=== PATIENT | female | born 1990 | race Native Hawaiian/Other Pacific Islander ===

== ENCOUNTER 2018-04-27 03:34 | Inpatient (IN) | payer MEDICAID, OTHER ==
[2018-04-27 03:44] VITALS: O2SAT 97
--- NOTE | 2018-04-27 04:01 | ED PDOC ---
Psych Transfer Clearance - Clearance Statement Clearance Statement: Reviewed vital signs, lab results and transfer papers. Patient clinically stable for psychiatric admission.
[2018-04-27] MEDS ORDERED: DiphenhydrAMINE 50 mg/ml Inj IM PRN (05:02)
[2018-04-27] MEDS ORDERED: Magnesium Hydroxide Susp 30 ml UD PO PRN (05:02)
--- NOTE | 2018-04-27 05:36 | PCM.BM ---
<Rodney Horton P - Last Filed: 04/27/18 05:34> Treatment Plan Problems - Problems identified on initial assessmt Hopelessness/Helplessness Date Initiated: 04/27/18 Time Initiated: 05:34 Assessment reference: NA Status: Active Treatment assets and liabiliti Patient Assests: cooperative, educated, ADL independent, physically healthy, good support system, negotiates basic needs, cognitively intact - Milieu Protocol Maintain good personal hygiene: daily Encourage regular showers, daily Remind patient to perform daily oral care, daily Assist patient to perform ADL's Conduct patient checks and document Observation sheet: Q15 minutes Maintain personal safety: every shift Educate patient to report safety concerns to staff, every shift Monitor environment for contraband/sharps Medication safety: Monitor for expected outcome, potential side effects: every shift, Assess barriers to learning: every shift, Assess readiness for medication education: every shift <Kaleb Chun J - Last Filed: 05/01/18 07:08> Family Contact Family involvement: Family/SO is involved Family contact: Patient agrees to contact, Family has been contacted by patient , Telephone contact initiated by staff Family contact name: Zia - Family contacted how many times per week?: 2 Family contact comment: Field Service Specialist spoke with pt's , Zia [phone], to update him on pt's progress on the unit, the course of treatment at this time and what was discussed in treatment team. Field Service Specialist reported that pt appears brighter today, more visible on the unit, and was seen interacting with other patients. Field Service Specialist explained medications to pt's and how patient is currently experiencing increased anxiety that may be caused by Zoloft, an SSRI. Field Service Specialist spoke about discharge with Zia as he does not have concerns for pt's safety at this time and feels comfortable with her returning home. Field Service Specialist explained referral to [facility] for medication management. - Goals for Treatment Patient goals for treatment: Pt identified restless sleep as a problem and would like better management of medication to address this issue. Patient's family/SO goals for treatment: Pt's offered no goals at the time of call. Discharge/Continuing Care - Education Needs Education Needs: Family Medication, Family Diagnosis/Disease Process, Family Coping Skills, Family Aftercare Safety Plan, Patient Medication, Patient Diagnosis/Disease Process, Patient Coping Skills, Patient Aftercare Safety Plan - Discharge Discharge Criteria: Tolerates medication w/o severe side effects, Free of Suicidal thoughts, Normal sleep pattern, Ability to care for self, Reduction of target symptoms Discharge to:: Home, With Family - Treatment Team Participation Patient/Family/SO Statement: 04/30/18 11:00 Pt reported that she is feeling "good," but experienced restless sleep due to an "anxious energy" ever since beginning the Zoloft. Dr. Boswell discussed possible switch in anti-depressant. Pt reported her body is very sensitive to medication as she cannot even drink coffee due to the caffeine. Discussed with Family/SO: Yes Was Patient/Family/SO present at Treatment Team Meeting: Yes <Kathie Boswell - Last Filed: 05/02/18 13:05> - Diagnosis (1) Depression Status: Acute Interventions: psychotherapy, pharmacotherapy 05/02/18 13:04
[2018-04-27 08:49] LABS: T4 8.76 ug/dl (5.5-11.0)
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
[2018-04-27] MEDS: Alum-Mag Hydrox-Simethicone Susp (30 mL) PO PRN (21:54)
[2018-04-28] MEDS: Alum-Mag Hydrox-Simethicone Susp (30 mL) PO PRN (04:25)
--- NOTE | 2018-04-28 05:12 | CP.PCM.HP ---
History of Present Illness - History of Present Illness History of Present Illness: Attending: Dr Gaines Chief complaint: Overdose on Naprosyn The patient was seen adn examined in the Psychiatric Unit HPI: This is a 27 years old female who was transferred from the [facility] to the [facility] psychiatric Unit for management. She had a miscarriage in November of 2017 and since then she has been depressed. On this occasion she ingested Naprosyn and Alcohol in a Suicidal attempt and was taken to the [facility]. she is referring epigastric pains relieved miniminally with Maalox. No nausea , vomits, Diarrhea, urinary symptoms nor fever. PMH: no chronic diseases PSH: Denies SH; No illegal substance abuse; No alcohol, Live with the family, Works as a accredited legal secretary. FH: State: No known famuily hx Allergy: NKDA Medication: None Present on Admission - Present on Admission Any Indicators Present on Admission: No History of DVT/PE: No History of Uncontrolled Diabetes: No Urinary Catheter: No Decubitus Ulcer Present: No Review of Systems - Constitutional Constitutional: absent: Anorexia, Chills, Fatigue, Fever, Headache - EENT Eyes: Requires Corrective Lenses. absent: Blurred Vision, Floaters, Photophobia Ears: absent: Decreased Hearing, Ear Discharge, Tinnitus Nose/Mouth/Throat: absent: Epistaxis, Nasal Congestion, Sinus Pain, Sinus Pressure - Cardiovascular Cardiovascular: absent: Chest Pain, Dyspnea, Edema - Respiratory Respiratory: absent: Cough, Dyspnea, Wheezing, Stridor - Gastrointestinal Gastrointestinal: Abdominal Pain. absent: Constipation, Diarrhea, Nausea, Vomiting - Genitourinary Genitourinary: absent: Dysuria, Flank Pain, Urinary Frequency - Musculoskeletal Musculoskeletal: absent: Arthralgias, Back Pain, Muscle Weakness - Integumentary Integumentary: absent: Pruritus, Rash, Skin Ulcer, Sores, Striae, Swelling - Neurological Neurological: absent: Confusion, Dizziness, Weakness - Psychiatric Psychiatric: absent: Anxiety, Depression, Panic Attacks - Endocrine Endocrine: absent: Palpitations, Polydipsia, Polyphagia, Polyuria - Hematologic/Lymphatic Hematologic: absent: Easy Bleeding, Easy Bruising Past Patient History - Past Medical History & Family History Past Medical History?: No - Past Social History Smoking Status: Never Smoked Chewing Tobacco Use: No Cigar Use: No Alcohol: None Home Situation {Lives}: With Family - CARDIAC Hx Cardiac Disorders: No - PULMONARY Hx Respiratory Disorders: No - NEUROLOGICAL Hx Neurological Disorder: No - HEENT Hx HEENT Problems: No - RENAL Hx Chronic Kidney Disease: No - ENDOCRINE/METABOLIC Hx Endocrine Disorders: No - HEMATOLOGICAL/ONCOLOGICAL Hx Blood Disorders: No - INTEGUMENTARY Hx Dermatological Problems: No - MUSCULOSKELETAL/RHEUMATOLOGICAL Hx Herniated Disk: Yes - GASTROINTESTINAL Hx Gastrointestinal Disorders: No - GENITOURINARY/GYNECOLOGICAL Hx Genitourinary Disorders: Yes Other/Comment: miscarriage November 2017 - PSYCHIATRIC Hx Substance Use: No - SURGICAL HISTORY Hx Surgeries: No - ANESTHESIA Hx Anesthesia: No Meds Allergies/Adverse Reactions: Allergies Allergy/AdvReac Type Severity Reaction Status Date / Time No Known Allergies Allergy Verified 04/27/18 03:44 Physical Exam - Constitutional Appears: No Acute Distress - Head Exam Head Exam: ATRAUMATIC, NORMAL INSPECTION, NORMOCEPHALIC - Eye Exam Eye Exam: EOMI, Normal appearance Pupil Exam: NORMAL ACCOMODATION, PERRL - ENT Exam ENT Exam: Mucous Membranes Moist, Normal Exam, Normal External Ear Exam, Normal Oropharynx - Neck Exam Neck exam: Positive for: Full Rom, Normal Inspection. Negative for: Lymphadenopathy, Tenderness - Respiratory Exam Respiratory Exam: Clear to Auscultation Bilateral, Stridor. absent: Rales, Rhonchi, Wheezes - Cardiovascular Exam Cardiovascular Exam: REGULAR RHYTHM, RRR, +S1, +S2. absent: Gallop, JVD - GI/Abdominal Exam GI & Abdominal Exam: Normal Bowel Sounds, Soft Additional comments: Epigastric abdominal pains on palpation, no guarding, no rebound tenderness - Rectal Exam Rectal Exam: Deferred - Extremities Exam Extremities exam: Positive for: full ROM, normal inspection. Negative for: calf tenderness, pedal edema - Back Exam Back exam: NORMAL INSPECTION. absent: CVA tenderness (L), CVA tenderness (R) - Neurological Exam Neurological exam: Alert, CN II-XII Intact, Oriented x3, Reflexes Normal - Psychiatric Exam Psychiatric exam: Normal Affect, Normal Mood - Skin Skin Exam: Dry, Intact, Normal Color, Warm Results - Vital Signs Recent Vital Signs: Last Vital Signs Temp 97.7 F 04/27/18 16:24 Pulse 93 H 04/27/18 16:24 Resp 16 04/27/18 16:24 BP 115/76 04/27/18 16:24 Pulse Ox 97 04/27/18 03:42 - Labs Result Diagrams: 04/28/18 07:27 04/28/18 07:27 Labs: Laboratory Results - last 24 hr 04/27/18 04/27/18 07:30 07:30 Triglycerides 55 Cholesterol 121 LDL Cholesterol Direct 61 HDL Cholesterol 44 Thyroxine (T4) 8.76 TSH 3rd Generation 1.00 RPR Nonreactive Assessment & Plan - Assessment and Plan (Free Text) Assessment: #. Depression #. Suicide Attempt #. UTI Plan: 27 years old female who was transferred from the [facility] to the [facility] psychiatric Unit for management. She had a miscarriage in November of 2017 and since then she has been depressed. On this occasion she ingested Naprosyn and Alcohol in a Suicidal attempt and was taken to the [facility]. #. Depression with suicidal attempt - Psychiatric management #. Gastritis caused by the Naprosyn ingestion - Pantoprazole BID - follow CBC #. UTI - Macrobid - Date & Time Date: 04/28/18 Time: 05:12
[2018-04-28 07:38] LABS: BASO % 0.9 % (0.0-2.0); EOS # 0.1 K/uL (0.0-0.7); EOS % 1.8 % (0.0-4.0); HEMOGLOBIN 12.1 g/dL (12.0-16.0); LYMPH # 1.8 K/uL (1.0-4.3); MEAN CELL VOLUME 90.2 fl (81.0-99.0); MEAN CORPUSCULAR HEMOGLOBIN 30.6 pg (27.0-31.0); MEAN CORPUSCULAR HGB CONC 33.9 g/dL (33.0-37.0); MEAN PLATELET VOLUME 8.4 fl (7.2-11.7); MONO # 0.6 K/uL (0.0-0.8); MONO % 11.6 % (0.0-10.0); NEUT # 2.5 K/uL (1.8-7.0); NEUT % 49.7 % (50.0-75.0); NRBC % 0.1 % (0.0-0.0); RBC 3.96 Mil/uL (3.80-5.20); RED CELL DISTRIBUTION WIDTH 13.8 % (11.5-14.5)
[2018-04-28 07:44] LABS: ALBUMIN 3.9 g/dL (3.5-5.0); BLOOD UREA NITROGEN 11 mg/dl (7-17); CALCIUM 9.1 mg/dL (8.4-10.2); GFR AFRICAN-AMERICAN > 60; GFR NON-AFRICAN AMERICAN > 60
[2018-04-28 07:45] LABS: ALB/GLOB RATIO 1.3 (1.0-2.1); ALT/SGPT 18 U/L (9-52); AST/SGOT 15 U/L (14-36)
--- NOTE | 2018-04-28 09:18 | CP.PCM.CON ---
History of Present Illness - History of Present Illness History of Present Illness: Attending: Dr Gaines Reason for Consult: Medical management Chief complaint: Overdose on Naprosyn The patient was seen adn examined in the Psychiatric Unit HPI: This is a 27 years old female who was transferred from the [facility] to the [facility] psychiatric Unit for management. She had a miscarriage in November of 2017 and since then she has been depressed. On this occasion she ingested Naprosyn and Alcohol in a Suicidal attempt and was taken to the [facility]. she is referring epigastric pains relieved miniminally with Maalox. No nausea , vomits, Diarrhea, urinary symptoms nor fever. PMH: no chronic diseases PSH: Denies SH; No illegal substance abuse; No alcohol, Live with the family, Works as a secretary to the vice president. FH: State: No known famuily hx Allergy: NKDA Medication: None Review of Systems - Constitutional Constitutional: absent: Anorexia, Chills, Fatigue, Fever, Headache - EENT Eyes: Requires Corrective Lenses. absent: Diplopia, Discharge, Floaters, Photophobia Ears: absent: Decreased Hearing, Ear Discharge, Tinnitus Nose/Mouth/Throat: absent: Epistaxis, Nasal Congestion, Sinus Pain, Sinus Pressure - Cardiovascular Cardiovascular: absent: Chest Pain, Dyspnea, Dyspnea on Exertion - Respiratory Respiratory: absent: Cough, Dyspnea - Gastrointestinal Gastrointestinal: absent: Abdominal Pain, Belching, Diarrhea, Nausea, Vomiting - Genitourinary Genitourinary: absent: Dysuria, Flank Pain, Hematuria, Urinary Frequency - Musculoskeletal Musculoskeletal: absent: Abnormal Gait, Arthralgias, Muscle Weakness - Integumentary Integumentary: absent: Pruritus, Rash, Skin Ulcer, Sores, Striae, Swelling - Neurological Neurological: absent: Confusion, Dizziness, Focal Weakness, Headaches, Weakness - Psychiatric Psychiatric: Depression, Suicidal Ideation. absent: Anxiety, Panic Attacks - Endocrine Endocrine: absent: Palpitations, Polydipsia, Polyphagia, Polyuria - Hematologic/Lymphatic Hematologic: absent: Easy Bleeding, Easy Bruising Past Patient History - Past Medical History & Family History Past Medical History?: No - Past Social History Smoking Status: Never Smoked Chewing Tobacco Use: No Cigar Use: No Alcohol: None Home Situation {Lives}: With Family - CARDIAC Hx Cardiac Disorders: No - PULMONARY Hx Respiratory Disorders: No - NEUROLOGICAL Hx Neurological Disorder: No - HEENT Hx HEENT Problems: No - RENAL Hx Chronic Kidney Disease: No - ENDOCRINE/METABOLIC Hx Endocrine Disorders: No - HEMATOLOGICAL/ONCOLOGICAL Hx Blood Disorders: No - INTEGUMENTARY Hx Dermatological Problems: No - MUSCULOSKELETAL/RHEUMATOLOGICAL Hx Herniated Disk: Yes - GASTROINTESTINAL Hx Gastrointestinal Disorders: No - GENITOURINARY/GYNECOLOGICAL Hx Genitourinary Disorders: Yes Other/Comment: miscarriage November 2017 - PSYCHIATRIC Hx Substance Use: No - SURGICAL HISTORY Hx Surgeries: No - ANESTHESIA Hx Anesthesia: No Meds Allergies/Adverse Reactions: Allergies Allergy/AdvReac Type Severity Reaction Status Date / Time No Known Allergies Allergy Verified 04/27/18 03:44 - Medications Medications: Current Medications Acetaminophen (Tylenol 325mg Tab) 650 mg PO Q4 PRN PRN Reason: pain level 4-7 Al Hydrox/Mg Hydrox/Simethicone (Maalox Plus 30 Ml) 30 ml PO Q4 PRN PRN Reason: Dyspepsia Last Admin: 04/28/18 04:25 Dose: 30 ml Diphenhydramine HCl (Benadryl) 50 mg IM Q6 PRN PRN Reason: Extrapyramidal S/S Unable PO Diphenhydramine HCl (Benadryl) 50 mg PO Q6 PRN PRN Reason: Extrapyramidal Symptoms Diphenhydramine HCl (Benadryl) 50 mg PO HS PRN PRN Reason: Sleep Haloperidol (Haldol) 5 mg PO Q4 PRN PRN Reason: Agitation Haloperidol Lactate (Haldol) 5 mg IM Q4 PRN PRN Reason: Agitation, Unable to Take PO Lorazepam (Ativan) 1 mg IM Q8 PRN PRN Reason: Anxiety/Agitation,Unable PO Lorazepam (Ativan) 1 mg PO Q8 PRN PRN Reason: Anxiety/Agitation Magnesium Hydroxide (Milk Of Magnesia) 30 ml PO HS PRN PRN Reason: Constipation Nitrofurantoin Macrocrystals (Macrobid) 100 mg PO Q12 BRIAN PRN Reason: Protocol Last Admin: 04/27/18 22:55 Dose: 100 mg Pantoprazole Sodium (Protonix Ec Tab) 40 mg PO BID [facility] Stop: 05/01/18 09:01 Sertraline HCl (Zoloft) 25 mg PO DAILY [facility] Physical Exam - Constitutional Appears: No Acute Distress - Head Exam Head Exam: ATRAUMATIC, NORMAL INSPECTION, NORMOCEPHALIC - Eye Exam Eye Exam: EOMI, Normal appearance Pupil Exam: NORMAL ACCOMODATION, PERRL - ENT Exam ENT Exam: Mucous Membranes Moist, Normal Exam, Normal External Ear Exam - Neck Exam Neck exam: Positive for: Full Rom, Normal Inspection. Negative for: Lymphadenopathy, Tenderness - Respiratory Exam Respiratory Exam: Clear to Auscultation Bilateral. absent: Rales, Rhonchi, Wheezes - Cardiovascular Exam Cardiovascular Exam: REGULAR RHYTHM, RRR, +S1, +S2. absent: Gallop, JVD - GI/Abdominal Exam GI & Abdominal Exam: Normal Bowel Sounds, Soft Additional comments: Epigastric abdominal pains on palpation, no guarding, no rebound tenderness - Rectal Exam Rectal Exam: Deferred - Extremities Exam Extremities exam: Positive for: full ROM, normal inspection. Negative for: joint swelling, pedal edema - Back Exam Back exam: NORMAL INSPECTION. absent: CVA tenderness (L), CVA tenderness (R) - Neurological Exam Neurological exam: Alert, CN II-XII Intact, Oriented x3, Reflexes Normal - Psychiatric Exam Psychiatric exam: Normal Affect, Normal Mood - Skin Skin Exam: Dry, Intact, Normal Color, Warm Results - Vital Signs Recent Vital Signs: Last Vital Signs Temp 97.7 F 04/27/18 16:24 Pulse 93 H 04/27/18 16:24 Resp 16 04/27/18 16:24 BP 115/76 04/27/18 16:24 Pulse Ox 97 04/27/18 03:42 - Labs Result Diagrams: 04/28/18 07:27 04/28/18 07:27 Labs: Laboratory Results - last 24 hr 04/27/18 04/27/18 04/28/18 07:30 07:30 07:27 WBC 5.0 RBC 3.96 Hgb 12.1 Hct 35.8 MCV 90.2 MCH 30.6 MCHC 33.9 RDW 13.8 Plt Count 244 MPV 8.4 Neut % (Auto) 49.7 L Lymph % (Auto) 36.0 Kent % (Auto) 11.6 H Eos % (Auto) 1.8 Baso % (Auto) 0.9 Neut # (Auto) 2.5 Lymph # (Auto) 1.8 Kent # (Auto) 0.6 Eos # (Auto) 0.1 Baso # (Auto) 0.0 Sodium Potassium Chloride Carbon Dioxide Anion Gap BUN Creatinine Est GFR ( Amer) Est GFR (Non-Af Amer) Random Glucose Hemoglobin A1c 5.0 Calcium Total Bilirubin AST ALT Alkaline Phosphatase Total Protein Albumin Globulin Albumin/Globulin Ratio TSH 3rd Generation RPR Nonreactive 04/28/18 07:27 WBC RBC Hgb Hct MCV MCH MCHC RDW Plt Count MPV Neut % (Auto) Lymph % (Auto) Kent % (Auto) Eos % (Auto) Baso % (Auto) Neut # (Auto) Lymph # (Auto) Kent # (Auto) Eos # (Auto) Baso # (Auto) Sodium 140 Potassium 3.9 Chloride 105 Carbon Dioxide 25 Anion Gap 14 BUN 11 Creatinine 0.5 L Est GFR ( Amer) > 60 Est GFR (Non-Af Amer) > 60 Random Glucose 94 Hemoglobin A1c Calcium 9.1 Total Bilirubin 0.8 AST 15 ALT 18 Alkaline Phosphatase 40 Total Protein 6.9 Albumin 3.9 Globulin 3.0 Albumin/Globulin Ratio 1.3 TSH 3rd Generation 0.68 RPR Assessment & Plan - Assessment and Plan (Free Text) Plan: #. Depression #. Suicide Attempt #. UTI Plan: 27 years old female who was transferred from the [facility] to the [facility] psychiatric Unit for management. She had a miscarriage in November of 2017 and since then she has been depressed. On this occasion she ingested Naprosyn and Alcohol in a Suicidal attempt and was taken to the [facility]. #. Depression with suicidal attempt - Psychiatric management #. Gastritis caused by the Naprosyn ingestion - Pantoprazole BID - follow CBC #. UTI - Macrobid - Date & Time Date: 04/28/18 Time: :18
[2018-04-28] MEDS: Pantoprazole 40 mg EC Tab PO SCH ×2 (10:07→21:45)
--- NOTE | 2018-04-28 13:54 | PCM.PYCHPN ---
Psychiatric Progress Note - Psychiatric Progress Note Patient seen today, length of contact: pt seen and evaluated Patient Chief Complaint: pt has remained very depressed and withdrawn with constricted affect.pt c/o stomach ache and irritation and seen by dr fagan and appears to be due to effect of naprosyn which pt overdosed on it and prescribed protonix for same.pt remains with limited insight about her suicidal gesture and need further stabilization. Medication Change: No Medical Record Reviewed: Yes Mental Status Examination - Cognitive Function Orientation: Person, Situation Memory: Intact Attention: Poor Association: WNL Fund of Knowledge: WNL - Mood Mood: Depressed - Affect Affect: Constricted - Formal Thought Process Formal Thought Process: No Impairment - Suicidal Ideation Suicidal Ideation: No - Homicidal Ideation Homicidal Ideation: No Goal/Treatment Plan - Goal/Treatment Plan Progress Toward Problem(s) and Goals/Treatment Plan: Pt has agreed to start zoloft 25 mg daily for depression and will continue to titrate the meds to stabilize the mood and engage pt in therapy and groups.
--- NOTE | 2018-04-29 10:30 | PCM.PYCHPN ---
Psychiatric Progress Note - Psychiatric Progress Note Patient seen today, length of contact: pt seen and evaluated Patient Chief Complaint: pt has been less depressed but still withdrawn with constricted affect.pt c/o anxiety and stomach ache and irritation and seen by dr fagan and appears to be due to effect of naprosyn which pt overdosed on it and prescribed protonix for same.pt remains with limited insight about her suicidal gesture and need further stabilizatiion Medication Change: No Medical Record Reviewed: Yes Mental Status Examination - Cognitive Function Orientation: Person, Situation Memory: Intact Attention: Poor Association: WNL Fund of Knowledge: WNL - Mood Mood: Depressed - Affect Affect: Constricted - Formal Thought Process Formal Thought Process: No Impairment - Suicidal Ideation Suicidal Ideation: No - Homicidal Ideation Homicidal Ideation: No Goal/Treatment Plan - Goal/Treatment Plan Progress Toward Problem(s) and Goals/Treatment Plan: Pt has agreed to start zoloft 25 mg daily for depression and will continue to titrate the meds to stabilize the mood and engage pt in therapy and groups.
[2018-04-29] MEDS: Pantoprazole 40 mg EC Tab PO SCH ×2 (11:07→16:23)
[2018-04-30] MEDS: Pantoprazole 40 mg EC Tab PO SCH ×2 (08:47→18:00)
--- NOTE | 2018-04-30 17:03 | PCM.PYCHPN ---
Psychiatric Progress Note - Psychiatric Progress Note Patient seen today, length of contact: pt seen and evaluated Patient Chief Complaint: I feel anxious and I could not sleep Problems Identified/Issues Discussed: pt evaluated with treatment team, reported episodes of increased anxiety, also reported decreased sleep with intermediate insomnia, pt relating the increased anxiety to zoloft, discussed decreasing the dose, also discussed starting trazodone to help with insomnia pt showing insight into illness and agreed to start therapy on discharge , denied any current active suicidal ideation or intent DSM 5 Symptoms Update: major depression Medication Change: Yes (decrease zoloft) Medical Record Reviewed: Yes Mental Status Examination - Cognitive Function Orientation: Person, Situation Memory: Intact Attention: WNL Concentration: WNL Association: WNL Fund of Knowledge: WN Decription of patient's judgement and insights: partial insight , fair judgment - Mood Mood: Depressed - Affect Affect: Constricted - Formal Thought Process Formal Thought Process: No Impairment Psychotic Thoughts and Behaviors: pt denied perceptual disturbances, non elicited - Suicidal Ideation Suicidal Ideation: No - Homicidal Ideation Homicidal Ideation: No Goal/Treatment Plan - Goal/Treatment Plan Need for Continued Stay: Severe depression anxiety, Discharge may exacerbated symptoms Progress Toward Problem(s) and Goals/Treatment Plan: decrease zoloft to 12.5mg and increase gradually start trazodone 25mg qhs for insomnia group and supportive therapy
[2018-05-01] MEDS: Pantoprazole 40 mg EC Tab PO SCH (09:43)
--- NOTE | 2018-05-01 15:45 | PCM.PYCHPN ---
Psychiatric Progress Note - Psychiatric Progress Note Patient seen today, length of contact: pt seen and evaluated Patient Chief Complaint: I am less anxious today Problems Identified/Issues Discussed: pt evaluated, reported feeling less anxious with the decrease of dose of zoloft , reported improved sleep, less depressed, brighter affect, attending groups pt showing insight into illness and agreed to start therapy on discharge , denied any current active suicidal ideation or intent DSM 5 Symptoms Update: depression Medication Change: No Medical Record Reviewed: Yes Mental Status Examination - Cognitive Function Orientation: Person, Situation Memory: Intact Attention: WNL Concentration: WNL Association: WNL Fund of Knowledge: WN Decription of patient's judgement and insights: partial insight , fair judgment - Mood Mood: Depressed - Affect Affect: Constricted - Formal Thought Process Formal Thought Process: No Impairment Psychotic Thoughts and Behaviors: pt denied perceptual disturbances, non elicited - Suicidal Ideation Suicidal Ideation: No - Homicidal Ideation Homicidal Ideation: No Goal/Treatment Plan - Goal/Treatment Plan Need for Continued Stay: Severe depression anxiety, Discharge may exacerbated symptoms Progress Toward Problem(s) and Goals/Treatment Plan: zoloft to 12.5mg trazodone 25mg qhs for insomnia group and supportive therapy
[2018-05-02 08:40] VITALS: BP 112/72; PULSE 76; RESP 16; TEMP 98
--- NOTE | 2018-05-02 13:13 | PCM.PYCHDC ---
Mental Status Examination - Mental Status Examination Orientation: Person, Place, Situation, Time Memory: Intact Mood: Neutral Affect: Broad Speech: Appropriate Attention: WNL Concentration: WNL Association: WNL Fund of Knowledge: WNL Formal Thought Process: No Impairment Description of patient's judgement and insight: partial insight , fair judgment Psychotic Thoughts and Behaviors: pt denied perceptual disturbances, non elicited Suicidal Ideation: No Current Homicidal Ideation?: No Discharge Summary - Discharge Note Reason for Hospitalization: This is the ist 3NP admission for this 27 yr olmarc has[place] female with h/o depression stemming from a miscarriage in nov 2017 and has been increasingly depressed for the past month and having suicidal thoughts and admitted as transfer from [facility] as pt made suicidal attempt by overdose on naproxen with wine .pt has recently moved to [place] last year and 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 pt has lost motivation to go out and socialize . Consultations:: List each consultation separately and include: 1. Reason for request. 2. Findings. 3. Follow-up Summary of Hospital Course include:: 1. Description of specific treatment plan utilized for patients during their course of treatmen. 2. Summarize the time- course for resolution of acute symptoms and/or regressed behaviors. 3. Describe issues identified and worked on during hospitalization. 4. Describe medication utilized. 5. Describe medical problems identified and treated. 6. Reassessment of suicide risk Summary of Hospital Course: pt on admission was started on zoloft 25mg daily, pt reported increased anxiety , zoloft dose was decreased to 12.5mg daily, pt was laso started on trazodone 25mg prn for insomnia CBT group and supportive therapy provided pt was compliant with treatment , attended groups on discharge mental status was stable, pt denied any current suicidal or homicidal ideation , denied perceptual disturbances follow up aranged by transition social worker at [facility] outpatient services - Diagnosis (1) Depression Status: Acute - Final Diagnosis (DSM 5) Condition upon Discharge: GOOD DSM 5: 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
== END 2018-05-02 12:12 | disposition home or self-care (01) | DRG 430 ==
LOC: H.ER 03:34 → H.PSYCH 04:00
PROVIDERS: ADMIT Psychiatry & Neurology Psychiatry; ATTEND Psychiatry & Neurology Psychiatry
PROC: GZHZZZZ Group Psychotherapy (ICD-10-PCS; principal; 2018-04-27)
PROC: GZ58ZZZ Individual Psychotherapy, Cognitive-Behavioral (ICD-10-PCS; 2018-04-27)
DX: F32.2 Major depressive disorder, single episode, severe without psychotic features (principal); N39.0 Urinary tract infection, site not specified; F41.9 Anxiety disorder, unspecified; Z91.5 Personal history of self-harm; G47.00 Insomnia, unspecified; K29.60 Other gastritis without bleeding; Z79.899 Other long term (current) drug therapy